=== PATIENT | female | born 1980 | race Caucasian/White ===

== ENCOUNTER 2017-04-02 11:23 | Emergency (ER) | payer BC ==
[~2017-04-02] VITALS: Ht 165.1 cm; Wt 77.9 kg
[~2017-04-02 11:23] MED LIST: CIPRO250 MG PO; FLOMAX0.4 MG PO; KEFLEX500 MG PO; PERCOCET 5/31 TABLET PO; ZOFRAN ODT4 MG PO; ZOFRAN4 MG PO
[2017-04-02 12:12] LABS: HEMATOCRIT 39.2 % (36.0-46.0); MCHC 34.2 G/DL (30.0-36.0); MCV 87.9 FL (83-99); RBC DIS.WIDTH-CV 12.5 % (11.8-14.6); RBC DIS.WIDTH-SD 40.3 % (39-53); RED BLOOD COUNT 4.46 M/uL (3.80-5.20); WHITE BLOOD COUNT 8.8 K/uL (4.1-10.2)
[2017-04-02 12:20] LABS: CHLORIDE 106 mEq/L (99-109); POTASSIUM 4.3 mEq/L (3.7-5.4); SODIUM 138 mEq/L (136-147)
[2017-04-02 12:21] LABS: GLUCOSE 114 mg/dL (70-99)
[2017-04-02 12:23] LABS: ANION GAP 8 MEQ/L (2-14)
[2017-04-02 12:25] LABS: GFR ESTIMATE (CALCULATED) > 59 mL/min/
[2017-04-02 12:26] LABS: UREA NITROGEN (BUN) 11 mg/dL (9-23)
[2017-04-02 12:38] LABS: ADD MIUA? YES; BILIRUBIN NEGATIVE; BLOOD SMALL; COLOR STRAW ((YELLOW)); GLUCOSE (STRIP) NEGATIVE; KETONES NEGATIVE; LEUKOCYTES NEGATIVE; NITRITE NEGATIVE; PROTEIN (STRIP) NEGATIVE; SPECIFIC GRAVITY 1.009 (1.000-1.030); UROBILINOGEN 0.2 MG/DL (0.2-1.0)
[2017-04-02 12:41] LABS: BACTERIA NONE SEEN /HPF; EPITHELIAL CELLS RARE /HPF; MUCUS TRACE /LPF; RED BLOOD CELLS 0-5 /HPF (0-5); UCUL ADDED? NO; WHITE BLOOD CELLS 0-5 /HPF (0-5)
[2017-04-02 12:52] LABS: MEAN PLAT.VOLUME 9.9 uM^3 (9.5-12.4); PLAT.SUFFICIENCY ADEQUATE; PLATELET COUNT 253 K/uL (156-360)
[2017-04-02] MEDS ORDERED: NAPROSYN500 MG PO (13:38)
[2017-04-02] MEDS ORDERED: PERCOCET 5/31 TABLET PO (13:38)
[2017-04-02] MEDS ORDERED: ZOFRAN4 MG PO (13:52)
[2017-04-02 13:56] VITALS: BP 120/69
== END 2017-04-02 13:58 | disposition home or self-care (01) ==
LOC: EME 11:23
DX: N13.2 Hydronephrosis with renal and ureteral calculous obstruction (principal); R11.0 Nausea; Z87.442 Personal history of urinary calculi; Z79.82 Long term (current) use of aspirin
CPT/HCPCS: 74176; 80048; 81003; 85027; 99281; 99283

== ENCOUNTER 2017-12-07 08:27 | Emergency (ER) | payer OTHER ==
[~2017-12-07] VITALS: Ht 154.9 cm; Wt 80.4 kg
[~2017-12-07 08:27] MED LIST changes: +NAPROSYN500 MG PO
[2017-12-07 09:02] LABS: HEMOGLOBIN 13.8 G/DL (11.9-15.5); MCH 30.3 PG (29.0-34.0); MCHC 34.5 G/DL (30.0-36.0); MCV 87.7 FL (83-99); PLATELET COUNT 402 K/uL (156-360); RBC DIS.WIDTH-CV 12.2 % (11.8-14.6); RBC DIS.WIDTH-SD 39.4 % (39-53); RED BLOOD COUNT 4.56 M/uL (3.80-5.20); WHITE BLOOD COUNT 7.9 K/uL (4.1-10.2)
[2017-12-07 09:06] LABS: APPEARANCE CLOUDY ((CLEAR)); BILIRUBIN NEGATIVE; BLOOD LARGE; COLOR YELLOW ((YELLOW)); GLUCOSE (STRIP) NEGATIVE; KETONES NEGATIVE; LEUKOCYTES NEGATIVE; NITRITE NEGATIVE; PROTEIN (STRIP) 100; SPECIFIC GRAVITY 1.018 (1.000-1.030); UROBILINOGEN 0.2 MG/DL (0.2-1.0)
[2017-12-07 09:12] LABS: ALBUMIN 4.5 g/dL (3.2-4.8)
[2017-12-07 09:13] LABS: CHLORIDE 106 mEq/L (99-109); POTASSIUM 4.1 mEq/L (3.7-5.4); SODIUM 136 mEq/L (136-147)
[2017-12-07 09:15] LABS: GLUCOSE 157 mg/dL (70-99); TOTAL PROTEIN 7.7 g/dL (6.4-8.3)
[2017-12-07 09:17] LABS: TOTAL BILIRUBIN 0.3 mg/dL (0.0-1.0)
[2017-12-07 09:18] LABS: ALKALINE PHOSPHATASE 108 IU/L (3-129)
[2017-12-07 09:19] LABS: CREATININE 0.8 mg/dL (0.6-1.3); GFR ESTIMATE (CALCULATED) > 59 mL/min/
[2017-12-07 09:20] LABS: AST (GOT) 40 IU/L (2-34); UREA NITROGEN (BUN) 10 mg/dL (9-23)
[2017-12-07 09:21] LABS: ALT (GPT) 30 IU/L (3-49)
[2017-12-07 09:22] LABS: LIPASE 23 U/L (1.0-51.0)
[2017-12-07 09:27] LABS: QUANTITATIVE HCG < 4.0 MIU/ML
[2017-12-07 09:39] LABS: BACTERIA 1+ /HPF; EPITHELIAL CELLS 1+ /HPF; MUCUS TRACE /LPF; RED BLOOD CELLS TNTC /HPF (0-5); WHITE BLOOD CELLS 0-5 /HPF (0-5)
[2017-12-07] MEDS ORDERED: NAPROSYN500 MG PO (11:24)
[2017-12-07] MEDS ORDERED: PERCOCET 5/31 TABLET PO (11:24)
[2017-12-07] MEDS ORDERED: FLOMAX0.4 MG PO (11:24)
[2017-12-07] MEDS ORDERED: ZOFRAN ODT4 MG PO (11:24)
[2017-12-07 12:26] VITALS: BP 145/97
== END 2017-12-07 12:28 | disposition home or self-care (01) ==
LOC: EME 08:27
PROVIDERS: Nurse Practitioner Family
DX: N13.2 Hydronephrosis with renal and ureteral calculous obstruction (principal); D75.1 Secondary polycythemia; Z87.442 Personal history of urinary calculi
CPT/HCPCS: 74176; 80053; 81003; 83690; 84702; 85027; 99281; 99285; J1885; J2405; J7030

== ENCOUNTER 2017-12-10 05:08 | Emergency (ER) | payer OTHER ==
[~2017-12-10] VITALS: Ht 154.9 cm; Wt 81.6 kg
[2017-12-10 07:58] LABS: CHLORIDE 100 MEQ/L (99-109); GFR ESTIMATE (CALCULATED) > 59 mL/min/; GLUCOSE 160 mg/dL (70-99); SODIUM 133 MEQ/L (136-147); UREA NITROGEN (BUN) 16 mg/dL (9-23)
[2017-12-10 08:04] LABS: POTASSIUM 5.2 MEQ/L (3.7-5.4)
[2017-12-10 08:11] LABS: HEMOGLOBIN 12.5 G/DL (11.9-15.5); MCH 30.6 PG (29.0-34.0); MCHC 34.7 G/DL (30.0-36.0); PLATELET COUNT 311 K/uL (156-360); RBC DIS.WIDTH-CV 12.3 % (11.8-14.6); RBC DIS.WIDTH-SD 39.7 % (39-53); RED BLOOD COUNT 4.09 M/uL (3.80-5.20); WHITE BLOOD COUNT 11.1 K/uL (4.1-10.2)
[2017-12-10 08:37] LABS: APPEARANCE SL.HAZY ((CLEAR)); BILIRUBIN NEGATIVE; BLOOD MODERATE; COLOR STRAW ((YELLOW)); GLUCOSE (STRIP) 50; KETONES NEGATIVE; LEUKOCYTES NEGATIVE; NITRITE NEGATIVE; PROTEIN (STRIP) 30; SPECIFIC GRAVITY 1.011 (1.000-1.030); UROBILINOGEN 0.2 MG/DL (0.2-1.0)
[2017-12-10 08:48] LABS: BACTERIA RARE /HPF; EPITHELIAL CELLS RARE /HPF; MUCUS TRACE /LPF; RED BLOOD CELLS 30-40 /HPF (0-5); UCUL ADDED? NO; WHITE BLOOD CELLS 0-5 /HPF (0-5)
[2017-12-10 10:37] VITALS: BP 148/92
== END 2017-12-10 10:43 | disposition home or self-care (01) ==
LOC: EME 05:08
PROVIDERS: Nurse Practitioner Family
DX: N13.2 Hydronephrosis with renal and ureteral calculous obstruction (principal); R31.9 Hematuria, unspecified; Z87.442 Personal history of urinary calculi; Z91.040 Latex allergy status
CPT/HCPCS: 74176; 80048; 81003; 85027; 99281; 99285; J1885; J2270; J2405; J3010; J7030

== ENCOUNTER 2018-04-11 21:09 | Emergency (ER) | payer OTHER ==
[~2018-04-11] VITALS: Ht 152.4 cm; Wt 79.7 kg
[2018-04-11 21:47] LABS: HEMOGLOBIN 13.3 G/DL (11.9-15.5); MCH 30.8 PG (29.0-34.0); PLATELET COUNT 344 K/uL (156-360); RBC DIS.WIDTH-CV 12.5 % (11.8-14.6); RBC DIS.WIDTH-SD 40.3 % (39-53); RED BLOOD COUNT 4.32 M/uL (3.80-5.20); WHITE BLOOD COUNT 10.7 K/uL (4.1-10.2)
[2018-04-11 21:59] LABS: CHLORIDE 108 mEq/L (99-109); POTASSIUM 4.2 mEq/L (3.7-5.4); SODIUM 138 mEq/L (136-147)
[2018-04-11 22:00] LABS: GLUCOSE 103 mg/dL (70-99)
[2018-04-11 22:04] LABS: CREATININE 0.9 mg/dL (0.6-1.3); GFR ESTIMATE (CALCULATED) > 59 mL/min/
[2018-04-11 22:05] LABS: UREA NITROGEN (BUN) 13 mg/dL (9-23)
[2018-04-11 22:29] LABS: ALBUMIN 4.6 g/dL (3.2-4.8)
[2018-04-11 22:31] LABS: TOTAL PROTEIN 8.2 g/dL (6.4-8.3)
[2018-04-11 22:33] LABS: TOTAL BILIRUBIN 0.4 mg/dL (0.0-1.0)
[2018-04-11 22:34] LABS: ALKALINE PHOSPHATASE 93 IU/L (3-129)
[2018-04-11 22:35] LABS: APPEARANCE CLEAR ((CLEAR)); BILIRUBIN NEGATIVE; BLOOD MODERATE; COLOR YELLOW ((YELLOW)); GLUCOSE (STRIP) NEGATIVE; KETONES NEGATIVE; LEUKOCYTES NEGATIVE; NITRITE NEGATIVE; PROTEIN (STRIP) 30; SPECIFIC GRAVITY 1.023 (1.000-1.030); UROBILINOGEN 0.2 MG/DL (0.2-1.0)
[2018-04-11 22:37] LABS: ALT (GPT) 14 IU/L (3-49); AST (GOT) 22 IU/L (2-34); DIRECT BILIRUBIN 0.1 mg/dL (0.0-0.3)
[2018-04-11 22:38] LABS: LIPASE 24 U/L (1.0-51.0)
[2018-04-11 22:58] LABS: BACTERIA RARE /HPF; EPITHELIAL CELLS 1+ /HPF; MUCUS TRACE /LPF; RED BLOOD CELLS 20-30 /HPF (0-5); UCUL ADDED? NO; WHITE BLOOD CELLS 0-5 /HPF (0-5)
[2018-04-12] MEDS ORDERED: ZOFRAN ODT8 MG PO (00:04)
[2018-04-12] MEDS ORDERED: MOTRIN800 MG PO (00:04)
[2018-04-12] MEDS ORDERED: FLOMAX0.4 MG PO (00:04)
[2018-04-12] MEDS ORDERED: NORCO 7.5/321 TABLET PO (00:04)
[2018-04-12 00:12] VITALS: BP 161/90
== END 2018-04-12 00:16 | disposition home or self-care (01) ==
LOC: EME 21:09 → EXP 21:09
DX: Z87.442 Personal history of urinary calculi (principal); N13.2 Hydronephrosis with renal and ureteral calculous obstruction; R03.0 Elevated blood-pressure reading, without diagnosis of hypertension; Z86.39 Personal history of other endocrine, nutritional and metabolic disease; Z91.040 Latex allergy status; Z91.048 Other nonmedicinal substance allergy status
CPT/HCPCS: 74176; 80048; 80076; 81003; 83690; 85027; J1885